=== PATIENT | male | born 1955 | race Caucasian/White ===

== ENCOUNTER 2018-08-16 13:07 | Inpatient (IN) | payer OTHER, MEDICAID ==
[~2018-08-16] VITALS: Ht 167.6 cm; Wt 74.8 kg
[~2018-08-16 13:07] MED LIST: FURO-151 PO; INSU3INS6 SUBCUT
[2018-08-16] MEDS ORDERED: ONDANSETRON HCL 4MG/2ML INJ IV STA (14:20)
[2018-08-16] MEDS ORDERED: SODIUM CHLORIDE 0.9% 1,000 ML IV ONE (14:20)
[2018-08-16 15:23] LABS: HEMATOCRIT. 41.4 % (42.0-52.0); HEMOGLOBIN. 14.5 g/dL (14.0-18.0); MEAN CORPUSCULAR HEMOGLOBIN 30.7 pg (28.0-32.0); MEAN CORPUSCULAR VOLUME 87.5 fL (80.0-94.0); MEAN PLATELET VOLUME 9.6 fl (7.4-10.4); PLATELET 350 x1000/uL (130-400); RED BLOOD CELL COUNT 4.73 mill/uL (4.7-6.1); RED CELL DISTRIBUTION WIDTH 18.3 % (11.6-14.6)
[2018-08-16 16:43] LABS: CHLORIDE 107 mEq/L (98-107)
[2018-08-16 16:47] LABS: AMMONIA < 10 uMol/L (<32)
[2018-08-16 17:03] LABS: PLATELET ESTIMATE NORMAL
[2018-08-16 17:27] LABS: HEPATITIS B SURFACE ANTIGEN NEGATIVE
[2018-08-16 17:55] LABS: HEPATITIS B CORE AB IGM NEGATIVE
[2018-08-16 17:56] LABS: HEPATITIS A AB IGM NEGATIVE (NEGATIVE)
[2018-08-16 20:07] LABS: CLARITY URINE CLEAR (CLEAR); COLOR URINE DARK YELLOW (YELLOW); KETONES URINE NEGATIVE (NEGATIVE); LEUKOCYTE ESTERASE URINE NEGATIVE (NEGATIVE); NITRITE URINE NEGATIVE (NEGATIVE); OCCULT BLOOD URINE NEGATIVE (NEGATIVE); PH URINE 5.5 (4.5-8.0); PROTEIN URINE NEGATIVE (NEGATIVE)
[2018-08-16 22:23] VITALS: BP 116/65
[2018-08-17] VITALS: BP 121/76
[2018-08-17] MEDS ORDERED: DEXTROSE 50% WATER 50ML SYRINGE IV PRN (00:15)
[2018-08-17] MEDS ORDERED: CEFTRIAXONE 1 G PREMIX 50 ML IV SCH (02:30)
[2018-08-17] MEDS: DEXT 5%/0.45% NACL KCL 30MEQ/L 1,000 ML IV SCH ×3 (03:37→23:33)
[2018-08-17] MEDS: CEFTRIAXONE 1 G PREMIX 50 ML IV SCH (03:37)
[2018-08-17 04:00] VITALS: BP 106/60
[2018-08-17] MEDS: INSULIN LISPRO 100 UNITS/ML SUBCUT SCH ×4 (06:32→21:00)
[2018-08-17] MEDS: BLOOD SUGAR DIAGNOSTIC STRIP TEST SCH ×4 (06:32→21:43)
[2018-08-17 06:44] LABS: BASOPHILS % 0.6 % (0.0-2.0); EOSINOPHILS % 4.1 % (0.0-5.0); HEMATOCRIT. 40.6 % (42.0-52.0); HEMOGLOBIN. 13.9 g/dL (14.0-18.0); LYMPHOCYTES % 21.1 % (20.0-50.0); MEAN CORPUSCULAR HEMOGLOBIN 30.7 pg (28.0-32.0); MEAN PLATELET VOLUME 9.5 fl (7.4-10.4); MONOCYTES % 6.8 % (2.0-8.0); NEUTROPHILS % 67.4 % (40.0-76.0); PLATELET 227 x1000/uL (130-400); RED BLOOD CELL COUNT 4.51 mill/uL (4.7-6.1); RED CELL DISTRIBUTION WIDTH 16.5 % (11.6-14.6)
[2018-08-17 07:57] LABS: CHLORIDE 108 mEq/L (98-107)
[2018-08-17 08:00] VITALS: BP 103/64
[2018-08-17 12:00] VITALS: BP 114/67
[2018-08-17] MEDS ORDERED: MAGNESIUM/ALUMINUM HYDROXIDE/SIMETHICONE 30ML UDC PO PRN (13:30)
[2018-08-17] MEDS ORDERED: HYDROCODONE/ACETAMINOPHEN 5/325MG TABLET PO PRN (13:30)
[2018-08-17] MEDS ORDERED: DOCUSATE SODIUM 100MG CAPSULE PO PRN (13:30)
[2018-08-17] MEDS ORDERED: DIPHENHYDRAMINE 50MG/ML VIAL IV PRN (13:30)
[2018-08-17] MEDS ORDERED: ACETAMINOPHEN 325MG TABLET PO PRN (13:30)
[2018-08-17] MEDS: PANTOPRAZOLE SODIUM 40 MG/VIAL IV SCH (15:06)
[2018-08-17] MEDS: METRONIDAZOLE 500 MG PREMIX 100 ML IV SCH ×2 (15:59→23:00)
[2018-08-17 16:00] VITALS: BP 109/76
[2018-08-17 20:00] VITALS: BP 111/73
[2018-08-18] VITALS: BP 107/64
[2018-08-18] MEDS: CEFTRIAXONE 1 G PREMIX 50 ML IV SCH (03:06)
[2018-08-18 04:00] VITALS: BP 118/77
[2018-08-18] MEDS: METRONIDAZOLE 500 MG PREMIX 100 ML IV SCH ×3 (06:04→21:49)
[2018-08-18] MEDS: BLOOD SUGAR DIAGNOSTIC STRIP TEST SCH ×4 (06:05→21:49)
[2018-08-18] MEDS: INSULIN LISPRO 100 UNITS/ML SUBCUT SCH ×4 (06:25→22:01)
[2018-08-18 07:01] LABS: HEMATOCRIT 41.6 % (42.0-52.0); HEMOGLOBIN 14.3 g/dL (14.0-18.0); MEAN CORPUSCULAR HEMOGLOBIN 30.9 pg (28.0-32.0); MEAN CORPUSCULAR VOLUME 89.8 fL (80.0-94.0); PLATELET 228 x1000/uL (130-400); RED BLOOD CELL COUNT 4.64 mill/uL (4.7-6.1); RED CELL DISTRIBUTION WIDTH 16.8 % (11.6-14.6)
[2018-08-18 08:00] VITALS: BP 133/64
[2018-08-18 08:27] LABS: CHLORIDE 105 mEq/L (98-107)
[2018-08-18 08:46] LABS: PHOSPHORUS 2.7 mg/dL (2.5-4.9); T4 FREE 1.22 ng/dL (0.76-1.46)
[2018-08-18] MEDS: PANTOPRAZOLE SODIUM 40 MG/VIAL IV SCH (09:12)
[2018-08-18] MEDS: DEXT 5%/0.45% NACL KCL 30MEQ/L 1,000 ML IV SCH (09:13)
[2018-08-18 12:00] VITALS: BP 122/82
[2018-08-18] MEDS ORDERED: POTASSIUM CHLORIDE INJ 40 MEQ in DEXT 5% WATER 250 ML IV NR (12:30)
[2018-08-18 16:00] VITALS: BP 128/88
[2018-08-18 20:00] VITALS: BP 108/63
[2018-08-19] VITALS: BP 115/68
[2018-08-19] MEDS: CEFTRIAXONE 1 G PREMIX 50 ML IV SCH (01:53)
[2018-08-19 04:00] VITALS: BP 100/74
[2018-08-19] MEDS: DEXT 5%/0.45% NACL KCL 30MEQ/L 1,000 ML IV SCH ×2 (04:23→15:17)
[2018-08-19 06:12] LABS: HEMATOCRIT 40.9 % (42.0-52.0); HEMOGLOBIN 13.7 g/dL (14.0-18.0); MEAN CORPUSCULAR HEMOGLOBIN 30.1 pg (28.0-32.0); MEAN CORPUSCULAR VOLUME 89.9 fL (80.0-94.0); PLATELET 236 x1000/uL (130-400); RED BLOOD CELL COUNT 4.55 mill/uL (4.7-6.1); RED CELL DISTRIBUTION WIDTH 16.6 % (11.6-14.6)
[2018-08-19] MEDS: BLOOD SUGAR DIAGNOSTIC STRIP TEST SCH ×4 (06:15→21:00)
[2018-08-19] MEDS: INSULIN LISPRO 100 UNITS/ML SUBCUT SCH ×4 (06:16→21:00)
[2018-08-19] MEDS: METRONIDAZOLE 500 MG PREMIX 100 ML IV SCH ×3 (06:17→23:02)
[2018-08-19 06:49] LABS: CHLORIDE 107 mEq/L (98-107)
[2018-08-19 08:00] VITALS: BP 103/63
[2018-08-19] MEDS: PANTOPRAZOLE SODIUM 40 MG/VIAL IV SCH (08:37)
[2018-08-19 12:00] VITALS: BP 100/75
[2018-08-19 16:00] VITALS: BP 128/87
[2018-08-19 20:00] VITALS: BP 110/64
[2018-08-20] VITALS: BP 126/78
[2018-08-20] MEDS: CEFTRIAXONE 1 G PREMIX 50 ML IV SCH (03:49)
[2018-08-20 04:00] VITALS: BP 125/57
[2018-08-20] MEDS: DEXT 5%/0.45% NACL KCL 30MEQ/L 1,000 ML IV SCH ×2 (05:24→23:56)
[2018-08-20 05:48] LABS: BASOPHILS % 0.6 % (0.0-2.0); EOSINOPHILS % 4.8 % (0.0-5.0); LYMPHOCYTES % 18.7 % (20.0-50.0); MEAN CORPUSCULAR HEMOGLOBIN 30.5 pg (28.0-32.0); MEAN CORPUSCULAR VOLUME 89.3 fL (80.0-94.0); MEAN PLATELET VOLUME 9.2 fl (7.4-10.4); NEUTROPHILS % 68.9 % (40.0-76.0); PLATELET 235 x1000/uL (130-400); RED BLOOD CELL COUNT 4.59 mill/uL (4.7-6.1); RED CELL DISTRIBUTION WIDTH 16.7 % (11.6-14.6)
[2018-08-20] MEDS: METRONIDAZOLE 500 MG PREMIX 100 ML IV SCH ×3 (06:40→21:00)
[2018-08-20] MEDS: INSULIN LISPRO 100 UNITS/ML SUBCUT SCH ×4 (07:15→20:59)
[2018-08-20] MEDS: BLOOD SUGAR DIAGNOSTIC STRIP TEST SCH ×4 (07:38→20:57)
[2018-08-20 07:56] LABS: CHLORIDE 103 mEq/L (98-107)
[2018-08-20 08:00] VITALS: BP 99/63
[2018-08-20] MEDS ORDERED: SIMETHICONE 40 MG/0.6 ML 30ML ONE (09:24)
[2018-08-20] MEDS ORDERED: IOHEXOL-300 100 ML BOTTLE ONE (09:24)
[2018-08-20] MEDS: PANTOPRAZOLE SODIUM 40 MG/VIAL IV SCH (10:05)
[2018-08-20] MEDS ORDERED: FENTANYL CITRATE/PF 50MCG/ML 2ML VIAL ONE (16:27)
[2018-08-20] MEDS ORDERED: ROCURONIUM BROMIDE 10MG/ML VIAL 5ML IV ONE (16:27)
[2018-08-20] MEDS ORDERED: PROPOFOL 200MG/20ML VIAL IV ONE (16:27)
[2018-08-20] MEDS ORDERED: NEOSTIGMINE METHYLSULFATE 1MG/ML 10 ML VIAL ONE (16:27)
[2018-08-20] MEDS ORDERED: MIDAZOLAM HCL 2 MG/2 ML VIAL ONE (16:27)
[2018-08-20] MEDS ORDERED: GLYCOPYRROLATE 0.2 MG/ML 2ML VIAL ONE (16:28)
[2018-08-20] MEDS ORDERED: MEPERIDINE HCL/PF 25MG/ML CPJ IV PRN (16:45)
[2018-08-20] MEDS ORDERED: HYDROMORPHONE HCL/PF 2MG/ML CPJ IV PRN (16:45)
[2018-08-20] MEDS ORDERED: ONDANSETRON HCL 4MG/2ML INJ IV PRN (16:45)
[2018-08-20] MEDS ORDERED: LABETALOL 5MG/ML SYR 20 MG/4 ML SYRINGE IV PRN (16:45)
[2018-08-20] MEDS ORDERED: ONDANSETRON HCL 4MG/2ML INJ ONE (16:47)
[2018-08-20] MEDS ORDERED: DEXAMETHASONE 4MG/ML 1ML VIAL ONE (16:47)
[2018-08-20 20:00] VITALS: BP 106/70
[2018-08-21] VITALS: BP 116/83
[2018-08-21 04:00] VITALS: BP 118/70
[2018-08-21] MEDS: CEFTRIAXONE 1 G PREMIX 50 ML IV SCH (04:56)
[2018-08-21] MEDS: METRONIDAZOLE 500 MG PREMIX 100 ML IV SCH ×3 (06:22→21:47)
[2018-08-21] MEDS: BLOOD SUGAR DIAGNOSTIC STRIP TEST SCH ×4 (06:22→21:47)
[2018-08-21] MEDS: INSULIN LISPRO 100 UNITS/ML SUBCUT SCH ×4 (06:24→21:50)
[2018-08-21] MEDS: DEXT 5%/0.45% NACL KCL 30MEQ/L 1,000 ML IV SCH ×2 (06:30→17:12)
[2018-08-21 07:20] LABS: HEMATOCRIT 41.3 % (42.0-52.0); HEMOGLOBIN 14.1 g/dL (14.0-18.0); MEAN CORPUSCULAR HEMOGLOBIN 30.7 pg (28.0-32.0); MEAN CORPUSCULAR VOLUME 89.7 fL (80.0-94.0); PLATELET 259 x1000/uL (130-400); RED CELL DISTRIBUTION WIDTH 16.4 % (11.6-14.6)
[2018-08-21 07:59] LABS: CHLORIDE 101 mEq/L (98-107)
[2018-08-21 08:00] VITALS: BP 106/96
[2018-08-21] MEDS: PANTOPRAZOLE SODIUM 40 MG/VIAL IV SCH (09:00)
[2018-08-21 12:00] VITALS: BP 119/65
[2018-08-21 16:00] VITALS: BP 105/66
[2018-08-21 20:00] VITALS: BP 123/77
[2018-08-22] VITALS: BP 107/68
[2018-08-22] MEDS: CEFTRIAXONE 1 G PREMIX 50 ML IV SCH (01:40)
[2018-08-22 04:00] VITALS: BP 95/62
[2018-08-22] MEDS: BLOOD SUGAR DIAGNOSTIC STRIP TEST SCH ×4 (06:31→21:52)
[2018-08-22] MEDS: METRONIDAZOLE 500 MG PREMIX 100 ML IV SCH ×3 (06:31→21:47)
[2018-08-22] MEDS: INSULIN LISPRO 100 UNITS/ML SUBCUT SCH ×4 (06:32→21:54)
[2018-08-22 06:53] LABS: BASOPHILS % 0.5 % (0.0-2.0); EOSINOPHILS % 1.3 % (0.0-5.0); HEMATOCRIT. 37.7 % (42.0-52.0); HEMOGLOBIN. 12.6 g/dL (14.0-18.0); MEAN CORPUSCULAR HEMOGLOBIN 30.2 pg (28.0-32.0); MEAN CORPUSCULAR VOLUME 90.5 fL (80.0-94.0); MEAN PLATELET VOLUME 9.6 fl (7.4-10.4); MONOCYTES % 6.8 % (2.0-8.0); NEUTROPHILS % 73.4 % (40.0-76.0); PLATELET 237 x1000/uL (130-400); RED BLOOD CELL COUNT 4.17 mill/uL (4.7-6.1); RED CELL DISTRIBUTION WIDTH 16.2 % (11.6-14.6)
[2018-08-22 07:15] LABS: CHLORIDE 106 mEq/L (98-107)
[2018-08-22 08:00] VITALS: BP 93/63
[2018-08-22] MEDS: DEXT 5%/0.45% NACL KCL 30MEQ/L 1,000 ML IV SCH ×2 (08:14→21:48)
[2018-08-22] MEDS: PANTOPRAZOLE SODIUM 40 MG/VIAL IV SCH (08:14)
[2018-08-22 12:00] VITALS: BP 96/53
[2018-08-22] MEDS: ACETAMINOPHEN 650MG SUPP PR PRN (12:38)
[2018-08-22 16:00] VITALS: BP 107/89
[2018-08-22 20:00] VITALS: BP 106/68
[2018-08-23] VITALS: BP 92/54
[2018-08-23] MEDS: CEFTRIAXONE 1 G PREMIX 50 ML IV SCH (02:23)
[2018-08-23] MEDS: ONDANSETRON HCL 4MG/2ML INJ IV PRN (03:31)
[2018-08-23 04:00] VITALS: BP 109/63
[2018-08-23 06:40] LABS: BASOPHILS % 0.3 % (0.0-2.0); EOSINOPHILS % 2.1 % (0.0-5.0); HEMATOCRIT. 31.3 % (42.0-52.0); HEMOGLOBIN. 10.9 g/dL (14.0-18.0); LYMPHOCYTES % 16.4 % (20.0-50.0); MEAN CORPUSCULAR HEMOGLOBIN 31.2 pg (28.0-32.0); MEAN CORPUSCULAR VOLUME 89.8 fL (80.0-94.0); MEAN PLATELET VOLUME 9.6 fl (7.4-10.4); MONOCYTES % 6.2 % (2.0-8.0); PLATELET 220 x1000/uL (130-400); RED BLOOD CELL COUNT 3.49 mill/uL (4.7-6.1); RED CELL DISTRIBUTION WIDTH 16.2 % (11.6-14.6)
[2018-08-23] MEDS: METRONIDAZOLE 500 MG PREMIX 100 ML IV SCH ×3 (06:48→21:59)
[2018-08-23] MEDS: BLOOD SUGAR DIAGNOSTIC STRIP TEST SCH ×4 (06:48→21:00)
[2018-08-23 06:57] LABS: CHLORIDE 102 mEq/L (98-107)
[2018-08-23] MEDS: INSULIN LISPRO 100 UNITS/ML SUBCUT SCH ×4 (07:06→22:25)
[2018-08-23 07:16] LABS: GAMMA GLUTAMYL TRANSPEPTIDASE 146 IU/L (11-50)
[2018-08-23 08:00] VITALS: BP 99/58
[2018-08-23] MEDS: PANTOPRAZOLE SODIUM 40 MG/VIAL IV SCH ×2 (10:00→21:59)
[2018-08-23 12:00] VITALS: BP 95/58
[2018-08-23 16:00] VITALS: BP 98/60
[2018-08-23] MEDS: DEXT 5%/0.45% NACL KCL 30MEQ/L 1,000 ML IV SCH (17:14)
[2018-08-23 20:00] VITALS: BP 99/61
[2018-08-23] MEDS: ACETAMINOPHEN 650MG SUPP PR PRN (22:01)
[2018-08-24] VITALS (9 sets, daily range): BP systolic 86–164; BP diastolic 48–69
[2018-08-24] MEDS: CEFTRIAXONE 1 G PREMIX 50 ML IV SCH (03:26)
[2018-08-24] MEDS: DEXT 5%/0.45% NACL KCL 30MEQ/L 1,000 ML IV SCH ×2 (03:27→15:47)
[2018-08-24] MEDS: METRONIDAZOLE 500 MG PREMIX 100 ML IV SCH ×3 (05:52→15:47)
[2018-08-24] MEDS: INSULIN LISPRO 100 UNITS/ML SUBCUT SCH ×4 (05:59→21:05)
[2018-08-24] MEDS: BLOOD SUGAR DIAGNOSTIC STRIP TEST SCH ×4 (06:45→20:38)
[2018-08-24 07:12] LABS: HEMATOCRIT. 25.7 % (42.0-52.0); HEMOGLOBIN. 8.8 g/dL (14.0-18.0); MEAN CORPUSCULAR HEMOGLOBIN 30.8 pg (28.0-32.0); MEAN CORPUSCULAR VOLUME 90.2 fL (80.0-94.0); PLATELET 222 x1000/uL (130-400); RED BLOOD CELL COUNT 2.85 mill/uL (4.7-6.1); RED CELL DISTRIBUTION WIDTH 15.9 % (11.6-14.6)
[2018-08-24 07:53] LABS: CHLORIDE 104 mEq/L (98-107)
[2018-08-24] MEDS: PANTOPRAZOLE SODIUM 40 MG/VIAL IV SCH ×2 (08:56→20:58)
[2018-08-24 09:06] LABS: CA 19-9 29 U/mL (0-35)
[2018-08-24 12:54] LABS: HEMATOCRIT 24.9 % (42.0-52.0); HEMOGLOBIN 8.6 g/dL (14.0-18.0)
[2018-08-24 13:01] LABS: PARTIAL THROMBOPLASTIN TIME 25.2 sec (23.4-31.0); PROTHROMBIN TIME 10.4 sec (9.1-11.1)
[2018-08-24 13:03] LABS: TOTAL IRON BINDING CAPACITY 229 ug/dL (250-450)
[2018-08-24 13:45] LABS: FOLIC ACID (FOLATE) SERUM 15.9 ng/mL (>5.38)
[2018-08-24 15:00] LABS: PLATELET ESTIMATE NORMAL
[2018-08-25] VITALS: BP 97/62
[2018-08-25] MEDS: DEXT 5%/0.45% NACL KCL 30MEQ/L 1,000 ML IV SCH (00:30)
[2018-08-25 00:57] VITALS: BP 94/62
[2018-08-25 03:17] LABS: HEMATOCRIT 26.5 % (42.0-52.0); HEMOGLOBIN 9.2 g/dL (14.0-18.0); MEAN CORPUSCULAR HEMOGLOBIN 31.2 pg (28.0-32.0); MEAN CORPUSCULAR VOLUME 89.9 fL (80.0-94.0); PLATELET 228 x1000/uL (130-400); RED BLOOD CELL COUNT 2.95 mill/uL (4.7-6.1); RED CELL DISTRIBUTION WIDTH 15.9 % (11.6-14.6)
[2018-08-25 03:25] LABS: CHLORIDE 105 mEq/L (98-107)
[2018-08-25 04:00] VITALS: BP 119/57
[2018-08-25] MEDS: BLOOD SUGAR DIAGNOSTIC STRIP TEST SCH ×4 (06:08→20:45)
[2018-08-25] MEDS: INSULIN LISPRO 100 UNITS/ML SUBCUT SCH ×4 (06:15→20:55)
[2018-08-25] MEDS: PANTOPRAZOLE SODIUM 40 MG/VIAL IV SCH ×2 (09:16→20:49)
[2018-08-25 12:00] VITALS: BP 115/62
[2018-08-25 13:10] LABS: ANA IFA Negative (.)
[2018-08-25] MEDS ORDERED: BISACODYL 10MG SUPP PR NR (13:15)
[2018-08-25] MEDS ORDERED: NA PHOS,M-B/NA PHOS,DI-BA ENEMA 118ML PR PRN (13:15)
[2018-08-25] MEDS: ONDANSETRON HCL 4MG/2ML INJ IV PRN (13:50)
[2018-08-25 14:21] LABS: ACTIN (SMOOTH MUSCLE) ANTIBODY 7 Units (0-19); MITOCHONDRIAL M2 AB 4.6 Units (0.0-20.0)
[2018-08-25 16:00] VITALS: BP 96/60
[2018-08-25 16:24] LABS: HEMATOCRIT 24.8 % (42.0-52.0); HEMOGLOBIN 8.5 g/dL (14.0-18.0)
[2018-08-25 20:00] VITALS: BP 99/53
[2018-08-25 20:24] LABS: HEMATOCRIT 24.5 % (42.0-52.0); HEMOGLOBIN 8.2 g/dL (14.0-18.0)
[2018-08-26] VITALS (11 sets, daily range): BP systolic 86–116; BP diastolic 53–69
[2018-08-26] MEDS: BLOOD SUGAR DIAGNOSTIC STRIP TEST SCH ×4 (05:47→21:16)
[2018-08-26] MEDS: INSULIN LISPRO 100 UNITS/ML SUBCUT SCH ×4 (06:10→21:00)
[2018-08-26 07:11] LABS: HEMOGLOBIN 7.3 g/dL (14.0-18.0); MEAN CORPUSCULAR VOLUME 91.8 fL (80.0-94.0); PLATELET 242 x1000/uL (130-400); RED BLOOD CELL COUNT 2.28 mill/uL (4.7-6.1); RED CELL DISTRIBUTION WIDTH 15.8 % (11.6-14.6)
[2018-08-26 07:21] LABS: CHLORIDE 105 mEq/L (98-107)
[2018-08-26] MEDS: PANTOPRAZOLE SODIUM 40 MG/VIAL IV SCH ×2 (09:00→21:16)
[2018-08-26] MEDS ORDERED: BISACODYL 10MG SUPP PR PRN (09:00)
[2018-08-26] MEDS ORDERED: LORAZEPAM 2MG/ML CPJ IV PRN (17:45)
[2018-08-26 20:18] LABS: HEMATOCRIT 24.8 % (42.0-52.0); HEMOGLOBIN 8.5 g/dL (14.0-18.0)
[2018-08-26 20:27] LABS: INR 1.1; PROTHROMBIN TIME 11.2 sec (9.1-11.1)
[2018-08-26] MEDS: DEXT 5%/0.45% NACL 1000ML 1,000 ML IV SCH (21:15)
[2018-08-27] VITALS (12 sets, daily range): BP systolic 91–103; BP diastolic 51–67
[2018-08-27 06:43] LABS: HEMATOCRIT 21.9 % (42.0-52.0); HEMOGLOBIN 7.4 g/dL (14.0-18.0); MEAN CORPUSCULAR HEMOGLOBIN 31.3 pg (28.0-32.0); MEAN CORPUSCULAR VOLUME 92.3 fL (80.0-94.0); PLATELET 223 x1000/uL (130-400); RED BLOOD CELL COUNT 2.37 mill/uL (4.7-6.1)
[2018-08-27] MEDS: BLOOD SUGAR DIAGNOSTIC STRIP TEST SCH ×3 (06:49→21:23)
[2018-08-27] MEDS: DEXT 5%/0.45% NACL 1000ML 1,000 ML IV SCH ×2 (06:49→21:23)
[2018-08-27] MEDS: INSULIN LISPRO 100 UNITS/ML SUBCUT SCH ×3 (06:49→21:00)
[2018-08-27 07:13] LABS: CHLORIDE 106 mEq/L (98-107)
[2018-08-27] MEDS: PANTOPRAZOLE SODIUM 40 MG/VIAL IV SCH ×2 (09:07→21:23)
[2018-08-27] MEDS ORDERED: STERILE WATER FOR INJECTION 10ML VIAL ONE (14:53)
[2018-08-27] MEDS ORDERED: MIDAZOLAM HCL 5 MG/5 ML VIAL IV PRN (16:10)
[2018-08-27] MEDS ORDERED: FENTANYL CITRATE/PF 50MCG/ML 2ML VIAL IV PRN (16:11)
[2018-08-27] MEDS ORDERED: MIDAZOLAM HCL 5 MG/5 ML VIAL ONE (16:17)
[2018-08-27] MEDS ORDERED: FENTANYL CITRATE/PF 50MCG/ML 2ML VIAL ONE (16:17)
[2018-08-28] VITALS (7 sets, daily range): BP systolic 93–124; BP diastolic 54–98
[2018-08-28] MEDS: INSULIN LISPRO 100 UNITS/ML SUBCUT SCH ×3 (06:34→17:15)
[2018-08-28] MEDS: BLOOD SUGAR DIAGNOSTIC STRIP TEST SCH ×3 (06:34→17:25)
[2018-08-28] MEDS: PANTOPRAZOLE SODIUM 40 MG/VIAL IV SCH (09:01)
[2018-08-28] MEDS ORDERED: SODIUM CHLORIDE 0.9% 500 ML IV ONE (11:00)
[2018-08-28] MEDS: DEXT 5%/0.45% NACL 1000ML 1,000 ML IV SCH (14:41)
[2018-08-28 17:24] LABS: HEMATOCRIT 26.7 % (42.0-52.0); MEAN CORPUSCULAR HEMOGLOBIN 31.5 pg (28.0-32.0); MEAN CORPUSCULAR VOLUME 93.2 fL (80.0-94.0); PLATELET 264 x1000/uL (130-400); RED BLOOD CELL COUNT 2.86 mill/uL (4.7-6.1); RED CELL DISTRIBUTION WIDTH 15.8 % (11.6-14.6)
[2018-08-28 18:35] LABS: CHLORIDE 107 mEq/L (98-107)
[2018-08-28] MEDS ORDERED: PANT40SU PO (19:57)
[2018-08-28 20:52] LABS: HEMATOCRIT 26.8 % (42.0-52.0); HEMOGLOBIN 9.2 g/dL (14.0-18.0)
== END 2018-08-28 20:41 | disposition home or self-care (01) | DRG 444 ==
LOC: ER 13:15 → EDBEDREQTM 16:39 → EDBEDREQ 16:39 → 5WST 17:23 → ENRESERV 20:25
PROVIDERS: ADMIT Internal Medicine; ATTEND Internal Medicine
PROC: BF111ZZ Fluoroscopy of Biliary and Pancreatic Ducts using Low Osmolar Contrast (ICD-10-PCS; 2018-08-20)
PROC: 0FC98ZZ Extirpation of Matter from Common Bile Duct, Via Natural or Artificial Opening Endoscopic (ICD-10-PCS; principal; 2018-08-20 15:00)
PROC: 30233N1 Transfusion of Nonautologous Red Blood Cells into Peripheral Vein, Percutaneous Approach (ICD-10-PCS; 2018-08-24)
PROC: 0DB78ZX Excision of Stomach, Pylorus, Via Natural or Artificial Opening Endoscopic, Diagnostic (ICD-10-PCS; 2018-08-27)
DX: K80.71 Calculus of gallbladder and bile duct without cholecystitis with obstruction (principal); K72.00 Acute and subacute hepatic failure without coma; K29.71 Gastritis, unspecified, with bleeding; D68.59 Other primary thrombophilia; E44.1 Mild protein-calorie malnutrition; E87.6 Hypokalemia; E86.0 Dehydration; K44.9 Diaphragmatic hernia without obstruction or gangrene; E66.9 Obesity, unspecified; D50.9 Iron deficiency anemia, unspecified; K56.41 Fecal impaction; R19.7 Diarrhea, unspecified; E11.9 Type 2 diabetes mellitus without complications; F79 Unspecified intellectual disabilities; I95.9 Hypotension, unspecified; K76.0 Fatty (change of) liver, not elsewhere classified; R50.9 Fever, unspecified; Z78.1 Physical restraint status; Z68.26 Body mass index [BMI] 26.0-26.9, adult; Z79.4 Long term (current) use of insulin; Z79.899 Other long term (current) drug therapy
CPT/HCPCS: 36415; 71045; 74018; 74176; 74181; 74328; 76700; 78278; 80048; 80076; 82140; 82248; 82607; 82728; 82746; 82962; 82977; 83036; 83516; 83540; 83550; 83735; 84100; 84439; 84443; 85007; 85014; 85018; 85027; 85044; 85049; 85384; 86256; 86301; 86705; 86709; 86803; 86850; 86900; 86920; 87340; 88305; 88313; 92610; 93005; 93306; 93970; 96361; 96374; 97162; 99285; A4216; A6261; A9560; C1726; C1769; C9113; J0696; J1100; J1200; J1815; J2060; J2250; J2405; J2704; J2710; J3010; J3480; J3490; J7030; J7040; J7050; J7060; P9016; Q9967; A4315